=== PATIENT | female | born 1990 | race Two or more races ===

== ENCOUNTER 2019-07-23 21:30 | Emergency (ER) | payer MEDICAID ==
[~2019-07-23] VITALS: Ht 160 cm; Wt 68.0 kg
[2019-07-23] MEDS ORDERED: SODIUM CHLORIDE 0.9% 1,000 ML IV ONE (22:00)
[2019-07-23 22:15] LABS: Basophils # (auto) 0.1 10 ^3/uL (0-0.2); Eosinophils # (auto) 0.1 10 ^3/uL (0-0.8); Eosinophils % (auto) 0.7 % (0.0-7.0); Hematocrit 42.2 % (36.0-46.0); Lymphocytes # (auto) 1.8 10 ^3/uL (0.4-5.4); Lymphocytes % (auto) 23.8 % (10.0-50.0); Mean Corpuscular Hemoglobin 29.1 pg (28.0-32.0); Mean Corpuscular Hgb Conc. 33.2 g/dL (32.0-36.0); Mean Corpuscular Volume 87.7 fL (80.0-100.0); Monocytes # (auto) 0.5 10 ^3/uL (0-1.3); Monocytes % (auto) 7.2 % (0.0-12.0); Neutrophils # (auto) 5.1 10 ^3/uL (1.6-8.6); Neutrophils % (auto) 67.3 % (37.0-80.0); Nucleated Red Blood Cells % 0.1 %; Platelet Count (auto) 237 10^3/uL (140-450); Red Blood Cells 4.82 10^6/uL (4.0-5.20); Red Cell Distribution Width 13.6 % (11.8-14.3); White Blood Cell 7.6 10^3/uL (4.4-10.8)
[2019-07-23 22:30] LABS: Urine Bacteria FEW /hpf (None Seen); Urine Blood Negative /uL (Negative); Urine Mucus FEW (None Seen); Urine Specific Gravity 1.009 (1.001-1.035); Urine WBC 66 /hpf (0 - 5)
[2019-07-23 22:39] LABS: Albumin 3.6 g/dL (3.4-5.0); BUN/Creatinine Ratio 17.3; Calcium 8.8 mg/dL (8.5-10.1); Potassium 3.7 mmol/L (3.5-5.1)
[2019-07-23 22:41] LABS: Bilirubin, Total 0.2 mg/dL (0.2-1.0)
[2019-07-23] MEDS ORDERED: cefTRIAXone 1GM/50ML D5W 50 ML IV ONE (23:00)
[2019-07-24] MEDS ORDERED: diphenhdrAMINE HCL 50 MG/1 ML VL IV ONE (00:15)
[2019-07-24 01:03] VITALS: BP 112/73
== END 2019-07-24 01:07 | disposition home or self-care (01) ==
LOC: ER 21:31
DX: O23.41 Unspecified infection of urinary tract in pregnancy, first trimester (principal); Z3A.01 Less than 8 weeks gestation of pregnancy
CPT/HCPCS: 36415; 76801; 80053; 81001; 84702; 85025; 87086; 96365; 96375; 99284; J0696

== ENCOUNTER 2019-12-11 16:24 | Emergency (ER) | payer MEDICAID ==
[~2019-12-11] VITALS: Ht 160 cm; Wt 74.8 kg
[2019-12-11 16:48] VITALS: BP 114/74
== END 2019-12-11 17:48 | disposition home or self-care (01) ==
LOC: ER 16:24
DX: O22.42 Hemorrhoids in pregnancy, second trimester (principal); Z3A.26 26 weeks gestation of pregnancy

== ENCOUNTER 2021-06-18 11:28 | Emergency (ER) | payer MEDICAID ==
[~2021-06-18] VITALS: Ht 160 cm; Wt 68.0 kg
[2021-06-18 11:49] VITALS: BP 123/75
[2021-06-18 12:06] LABS: Urine Bacteria NONE SEEN /hpf (None Seen); Urine Blood 3+ /uL (Negative); Urine Specific Gravity 1.019 (1.001-1.035); Urine WBC 630 /hpf (0 - 5); Urine WBC Clumps PRESENT /hpf (None Seen)
[2021-06-18 12:11] LABS: Basophils # (auto) 0 10 ^3/uL (0-0.2); Eosinophils # (auto) 0.1 10 ^3/uL (0-0.8); Eosinophils % (auto) 1.3 % (0.0-7.0); Hematocrit 38.7 % (36.0-46.0); Hemoglobin 13.3 g/dL (12.2-16.2); Lymphocytes # (auto) 1.4 10 ^3/uL (0.4-5.4); Lymphocytes % (auto) 28.6 % (10.0-50.0); Mean Corpuscular Hemoglobin 29.2 pg (28.0-32.0); Mean Corpuscular Hgb Conc. 34.3 g/dL (32.0-36.0); Mean Corpuscular Volume 85.2 fL (80.0-100.0); Monocytes # (auto) 0.4 10 ^3/uL (0-1.3); Monocytes % (auto) 7.5 % (0.0-12.0); Neutrophils # (auto) 2.9 10 ^3/uL (1.6-8.6); Neutrophils % (auto) 61.6 % (37.0-80.0); Nucleated Red Blood Cells % 0.1 %; Red Blood Cells 4.54 10^6/uL (4.0-5.20); White Blood Cell 4.8 10^3/uL (4.4-10.8)
[2021-06-18] MEDS ORDERED: NAPR500T31 PO (14:58)
[2021-06-18] MEDS ORDERED: SULF400T11 PO (14:58)
== END 2021-06-18 15:06 | disposition home or self-care (01) ==
LOC: ER 11:28
DX: N93.8 Other specified abnormal uterine and vaginal bleeding (principal); N39.0 Urinary tract infection, site not specified; N92.1 Excessive and frequent menstruation with irregular cycle
CPT/HCPCS: 36415; 76856; 81001; 81025; 85025

== ENCOUNTER 2022-02-06 12:06 | Emergency (ER) | payer MEDICAID ==
[~2022-02-06] VITALS: Ht 160 cm; Wt 75.0 kg
[~2022-02-06 12:06] MED LIST: NAPR500T31 PO; SULF400T11 PO
[2022-02-06 14:13] LABS: Urine Bacteria FEW /hpf (None Seen); Urine Blood Negative /uL (Negative); Urine Specific Gravity 1.012 (1.001-1.035); Urine WBC 1 /hpf (0 - 5)
[2022-02-06] MEDS ORDERED: ACETAMINOPHEN 500 MG TAB PO ONE (14:30)
[2022-02-06 14:37] VITALS: BP 117/73
[2022-02-06] MEDS ORDERED: CYCL-839 PO (15:34)
[2022-02-06] MEDS ORDERED: ACET-1080 PO (15:34)
== END 2022-02-06 15:41 | disposition home or self-care (01) ==
LOC: ER 12:06
DX: O26.892 Other specified pregnancy related conditions, second trimester (principal); M54.41 Lumbago with sciatica, right side; Z79.899 Other long term (current) drug therapy; Z88.8 Allergy status to other drugs, medicaments and biological substances; Z3A.15 15 weeks gestation of pregnancy
CPT/HCPCS: 76815; 81001; 81025; 82962

== ENCOUNTER 2022-12-09 07:37 | Emergency (ER) | payer MEDICAID ==
[~2022-12-09] VITALS: Ht 160 cm; Wt 67.0 kg
[~2022-12-09 07:37] MED LIST changes: +ACET-1080 PO; +CYCL-839 PO; +NAPR-746 PO; -NAPR500T31 PO
[2022-12-09 08:29] VITALS: BP 114/75; PULSE 107; RESP 16; TEMP 97.2; O2SAT 98
[2022-12-09] MEDS ORDERED: PRED20TA2 PO (08:47)
[2022-12-09] MEDS ORDERED: BACDST PO (08:47)
== END 2022-12-09 08:52 | disposition home or self-care (01) ==
LOC: ER 07:37
DX: J01.90 Acute sinusitis, unspecified (principal); Z79.899 Other long term (current) drug therapy; Z88.8 Allergy status to other drugs, medicaments and biological substances